=== PATIENT | male | born 1985 | race African-American/Black ===

== ENCOUNTER 2023-03-25 08:07 | Emergency (ER) | payer SELFPAY ==
[~2023-03-25] VITALS: Ht 190.5 cm; Wt 112.5 kg
[2023-03-25] MEDS ORDERED: PREDNISONE50 MG PO (08:26)
[2023-03-25] MEDS ORDERED: ZITHROMAX250 MG PO (08:26)
== END 2023-03-25 08:36 | disposition home or self-care (01) ==
LOC: ED 08:07
DX: J40 Bronchitis, not specified as acute or chronic (principal)